=== PATIENT | male | born 1940 | race Caucasian/White ===

== ENCOUNTER → 2016-11-17 | Outpatient (CLI) | payer OTHER, MEDICARE ==
--- NOTE | 2016-11-17 11:21 | DI ---
HISTORY: Asbestos exposure. COMPARISON: None available. FINDINGS: The heart is in the upper limits of normal with slight tortuosity of the dorsal aorta. Th e lung cosme are essentially clear. IMPRESSION: 1. Slightly tortuous dorsal aorta.
== END ==
LOC: MOB LAB 09:50
PROVIDERS: ATTEND Family Medicine
DX: Z77.090 Contact with and (suspected) exposure to asbestos (principal)
CPT/HCPCS: 71020

== ENCOUNTER → 2016-12-08 | Outpatient (CLI) | payer OTHER, MEDICARE ==
[2016-12-08 09:33] LABS: HEMATOCRIT 46.4 % (42.0-52.0); HEMOGLOBIN 15.7 g/dL (14.0-18.0); MEAN CORPUSCULAR HEMOGLOBIN 30.8 PG (27-31); MEAN CORPUSCULAR HGB CONC 33.8 g/dL (33-37); MEAN CORPUSCULAR VOLUME 91.2 FL (80-90); MEAN PLATELET VOLUME 9.2 FL (7.4-12.2); RED BLOOD COUNT 5.09 10^6/uL (4.70-6.10)
[2016-12-08 12:15] LABS: CALCIUM 9.2 mg/dL (8.7-10.7); SERUM ALBUMIN 4.1 g/dL (3.5-4.8)
== END ==
LOC: LAB 09:19
PROVIDERS: ATTEND Orthopaedic Surgery
DX: M25.562 Pain in left knee (principal)
CPT/HCPCS: 36415; 80053; 85027